=== PATIENT | male | born 1970 | race Caucasian/White ===

== ENCOUNTER 2017-05-04 11:25 | Emergency (ER) | payer OTHER ==
[2017-05-04] MEDS ORDERED: TDAP ADULT 0.5 ML INJ (BOOSTRIX) IM ONE (11:36)
[2017-05-04] MEDS ORDERED: LET GEL TOPICAL 1 EA SYR TP ONE (11:36)
[2017-05-04 11:38] VITALS: TEMP 98.4; O2SAT 96
[2017-05-04] MEDS ORDERED: SKIN ADHESIVE (DERMABOND) 1 EACH TP ONE (12:52)
--- NOTE | 2017-05-04 13:28 | EDPHY ---
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 The bleeding slowed with direct pressure. He denies any other injuries and no other associated symptoms. He came here by private vehicle for evaluation of his wounds. ROS: Neuro: No numbness tingling Musculoskeletal: No bony pain. No difficulty in the affected fingers. 5 point ROS is otherwise negative Past Medical/Surgical History: Immunizations - tetanus given here - last tetanus was borderline in terms of timing Smoking Status: Never smoked Physical Exam: Physical Exam Vital signs are normal. General: No acute distress Eyes: Pupils equal and react to light. Extraocular motions are intact. Lungs: No respiratory distress. Cardiac: Brisk capillary refill is intact throughout. Pulses are 2+ and symmetric in the affected extremity. Skin: No rash or pallor. Extremities: Atraumatic and normal except for 3rd and 4th fingers left hand-2 cm laceration to the distal phalanx of the 3rd finger with subcutaneous tissue evident, no foreign bodies and direct examination, mild bleeding. The wound is oriented at a right angle to the long axis of the finger. There is a superficial 1 cm laceration to the 4th finger distal phalanx pad with no active bleeding Neuro: Alert with no sensorimotor deficits in the affected fingers Constitutional: Initial Vital Signs Temperature (C) 36.9 C 05/04/17 11:37 Heart Rate 87 05/04/17 11:37 Respiratory Rate 18 05/04/17 11:37 Blood Pressure 138/87 H 05/04/17 11:37 O2 Sat (%) 96 05/04/17 11:37 O2 Delivery Mode Room Air Allergies/Adverse Reactions: No Known Allergies Allergy (Unverified 05/04/17 11:36) Home Medications: Medication Instructions Recorded NK [No Known Home Meds] 05/04/17 MDM/Departure - MDM Procedures: Digital block 2/3 finger: After verbal consent, using a 50 50 mix of 0.5% Marcaine 2% plain lidocaine, 27 gauge needle, chlorhexidine scrub under sterile conditions-3 injections were administered to the base of the affected finger, 8 mL with good effect. Patient tolerated this well. There were no complications. Laceration repair: The 1st wound is 2 cm to the 3rd finger described physical exam, 2nd wound is 1 cm to 4th finger described physical exam. The wound was copiously irrigated with saline. The wound was explored for foreign bodies and none were found. The wound was prepped and draped in the normal sterile fashion. The edges of the 1st wounds were reapproximated using 4 0 Prolene on a P3 needle, 9 running sutures with good hemostasis and cosmesis. The patient tolerated the procedure well. There were no complications. The 2nd laceration to the 4th finger is repaired with Dermabond closure with good hemostasis and cosmesis after the wound is cleaned with baby shampoo and saline by our tech. Patient tolerated this well. There were no complications. Medications Given: Discontinued Medications Diphtheria/Tetanus/Acell Pertussis (Boostrix) 0.5 ml IM .ONCE ONE Stop: 05/04/17 11:37 Last Admin: 05/04/17 11:42 Dose: 0.5 ml Tetracaine/Epinephrine/Lidocaine (Let Gel Topical) 1 ea TP EDNOW ONE Stop: 05/04/17 11:37 Last Admin: 05/04/17 11:42 Dose: 1 ea ED Course/Re-evaluation: Tube gauze applied to the patient's 3rd finger. I counseled him regarding wound care. Discussion: Lacerations to 3rd and 4th finger without neurovascular compromise or other complications. - Depart Disposition: Home, Routine, Self-Care Clinical Impression: Finger laceration Qualifiers: Encounter type: initial encounter Finger: unspecified finger Damage to nail status: without damage Foreign body presence: without foreign body Laterality: left Qualified Code(s): S61.219A - Laceration without foreign body of unspecified finger without damage to nail, initial encounter Condition: Good Instructions: Finger Laceration (ED), Skin Adhesive Care (ED) Additional Instructions: Diagnoses: 1. Left 3rd finger laceration 2. Left 4th finger laceration Plan: Keep the glue away from any petroleum products such as wound mental this would dissolve the glue. Protect the glue with a finger splint while at work for the next week or so Keep the sutured finger clean and dry with bandage in place for the next 2 days. Then removed the bandage, clean daily with warm soapy water Return for suture removal in 10-12 days Ibuprofen and Tylenol for pain as needed Return sooner for evaluation if he develops redness, discharge or other concerns for infection in the finger. Referrals: NONE *PRIMARY CARE P,. [Primary Care Provider] - As per Instructions
[2017-05-04 13:43] VITALS: BP 131/87; PULSE 82; RESP 16
== END 2017-05-04 13:30 | disposition home or self-care (01) ==
LOC: CED 11:25
PROC: 0HQGXZZ Repair Left Hand Skin, External Approach (ICD-10-PCS; principal; 2017-05-04)
DX: S61.213A Laceration without foreign body of left middle finger without damage to nail, initial encounter (principal); S61.215A Laceration without foreign body of left ring finger without damage to nail, initial encounter; Z23 Encounter for immunization; W26.0XXA Contact with knife, initial encounter; Y92.69 Other specified industrial and construction area as the place of occurrence of the external cause; Y99.0 Civilian activity done for income or pay; Y93.89 Activity, other specified